=== PATIENT | female | born 1965 | race Caucasian/White ===

== ENCOUNTER 2022-03-14 20:57 | Emergency (ER) | payer SELFPAY ==
[~2022-03-14] VITALS: Ht 157.5 cm; Wt 59.0 kg
[2022-03-14 21:10] VITALS: BP 164/98
[2022-03-14] MEDS ORDERED: ACETAMINOPHEN 325MG TABLET PO ONE (21:45)
[2022-03-14] MEDS ORDERED: ACET-2708 MT (23:11)
== END 2022-03-14 23:30 | disposition home or self-care (01) ==
LOC: ER 20:57
DX: S93.492A Sprain of other ligament of left ankle, initial encounter (principal); W01.0XXA Fall on same level from slipping, tripping and stumbling without subsequent striking against object, initial encounter; Y93.89 Activity, other specified; Y92.89 Other specified places as the place of occurrence of the external cause; Y99.8 Other external cause status
CPT/HCPCS: 73610; 99283